=== PATIENT | female | born 1970 | race Caucasian/White ===

== ENCOUNTER 2017-04-03 13:50 | Emergency (ER) | payer SELFPAY ==
[~2017-04-03] VITALS: Wt 71.0 kg
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
[2017-04-03] MEDS ORDERED: NAPR-260 PO (16:07)
[2017-04-03] MEDS ORDERED: CYCL-319 PO (16:07)
== END 2017-04-03 16:27 | disposition home or self-care (01) ==
LOC: FTE 13:50
DX: M54.6 Pain in thoracic spine (principal); Z04.1 Encounter for examination and observation following transport accident
CPT/HCPCS: 99283